=== PATIENT | female | born 1945 | race Asian ===

== ENCOUNTER 2016-12-04 15:05 | Emergency (ER) | payer MEDICARE, OTHER ==
[~2016-12-04] VITALS: Ht 149.9 cm; Wt 63.6 kg
[~2016-12-04 15:05] MED LIST: ASPI-1182 PO; LEVO100 PO; METF500T4 PO; NIFE60TA71 PO; PRAV40TA4 PO; RANO500T3 PO
[2016-12-04] MEDS ORDERED: SIMV-259 PO (15:25)
[2016-12-04] MEDS ORDERED: AMLO-512 PO (15:25)
[2016-12-04] MEDS ORDERED: AMIO200T44 PO (15:25)
[2016-12-04 15:31] LABS: GLUCOSE,POINT OF CARE 139 MG/DL (70-110)
[2016-12-04] MEDS ORDERED: ACETAMINOPHEN 325 MG TABLET PO ONE (15:45)
[2016-12-04 16:54] VITALS: BP 178/62
== END 2016-12-04 17:40 | disposition home or self-care (01) ==
LOC: EMS 15:06
DX: S20.212A Contusion of left front wall of thorax, initial encounter (principal); I11.0 Hypertensive heart disease with heart failure; I50.9 Heart failure, unspecified; E11.9 Type 2 diabetes mellitus without complications; V49.50XA Passenger injured in collision with unspecified motor vehicles in traffic accident, initial encounter; Y93.89 Activity, other specified; Y92.89 Other specified places as the place of occurrence of the external cause; Y99.8 Other external cause status
CPT/HCPCS: 71020; 82962; 93005; 99284

== ENCOUNTER 2024-03-14 10:41 | Emergency (ER) | payer OTHER ==
[~2024-03-14] VITALS: Ht 149.9 cm; Wt 54.5 kg
[~2024-03-14 10:41] MED LIST changes: +AMIO200T68 PO; +AMLO-258 PO; -ASPI-1182 PO; +ASPI-1444 PO; -LEVO100 PO; +METF-1211 PO; -METF500T4 PO; -NIFE60TA71 PO; -PRAV40TA4 PO; +RANO500T27 PO; -RANO500T3 PO; +SIMV-259 PO
[2024-03-14 11:00] VITALS: BP 128/47; PULSE 66; RESP 18; TEMP 98.5; O2SAT 100
[2024-03-14] MEDS ORDERED: FERR325T27 PO (11:02)
[2024-03-14] MEDS ORDERED: AMLO5TAB66 PO (11:02)
[2024-03-14] MEDS ORDERED: ATOR10TA69 PO (11:02)
[2024-03-14] MEDS ORDERED: ASCO500T20 PO (11:02)
[2024-03-14] MEDS ORDERED: METF-446 PO (11:02)
[2024-03-14] MEDS ORDERED: CHOL200074 PO (11:02)
== END 2024-03-14 11:25 | disposition home or self-care (01) ==
LOC: EMS 10:49
DX: S01.91XD Laceration without foreign body of unspecified part of head, subsequent encounter (principal); I11.0 Hypertensive heart disease with heart failure; I50.9 Heart failure, unspecified; E11.9 Type 2 diabetes mellitus without complications; Z48.02 Encounter for removal of sutures; Z79.899 Other long term (current) drug therapy; Z79.84 Long term (current) use of oral hypoglycemic drugs; X58.XXXD Exposure to other specified factors, subsequent encounter
CPT/HCPCS: 82962; 99282

== ENCOUNTER 2024-10-06 16:26 | Emergency (ER) | payer OTHER ==
[~2024-10-06] VITALS: Ht 134.6 cm; Wt 54.5 kg
[~2024-10-06 16:26] MED LIST changes: -AMIO200T68 PO; -AMLO-258 PO; +AMLO5TAB66 PO; +ASCO500T20 PO; -ASPI-1444 PO; +ATOR10TA69 PO; +CHOL200074 PO; +FERR325T27 PO; -METF-1211 PO; +METF-446 PO; -RANO500T27 PO; -SIMV-259 PO
[2024-10-06 16:51] VITALS: TEMP 98.6
[2024-10-06 17:57] LABS: PLATELET COUNT (AUTO) 337 K/uL (150-450); RED BLOOD CELL COUNT(AUTO) 5.56 MIL/uL (4.00-5.20); RED CELL DISTRIBUTION WIDTH 15.8 % (11.5-14.5); WHITE BLOOD COUNT (AUTO) 8.9 K/uL (4.5-11.0)
[2024-10-06 18:08] LABS: CALCIUM, TOTAL 8.4 mg/dL (8.8-10.5); CREATININE 0.68 mg/dL (0.60-1.30); GLOMERULAR FILTR. RATE CALC > 60 mL/min (>60); GLUCOSE,RANDOM 104 mg/dL (70-110); SODIUM SERUM 141 mmol/L (136-145); UREA NITROGEN, BLOOD 14 mg/dL (7-18)
[2024-10-06 18:41] LABS: APPEARANCE,URINE CLEAR (CLEAR); GLUCOSE, URINE (UA) NEGATIVE (NEGATIVE); LEUKOCYTE ESTERASE ,URINE TRACE (NEGATIVE); NITRATE,URINE NEGATIVE (NEGATIVE); OCCULT BLOOD,URINE NEGATIVE (NEGATIVE); SPECIFIC GRAVITIY, URINE 1.007 (1.003-1.030)
[2024-10-06 18:53] LABS: SQUAMOUS EPITHELIAL CELL,UR Rare /LPF (None Seen)
[2024-10-06 19:00] VITALS: BP 125/65; PULSE 79; RESP 15; O2SAT 97
[2024-10-06] MEDS ORDERED: MELA3TAB89 PO (19:30)
== END 2024-10-06 19:48 | disposition home or self-care (01) ==
LOC: EMS 16:26
DX: G47.9 Sleep disorder, unspecified (principal); E11.9 Type 2 diabetes mellitus without complications; I11.0 Hypertensive heart disease with heart failure; I50.9 Heart failure, unspecified; Z98.890 Other specified postprocedural states; Z79.899 Other long term (current) drug therapy
CPT/HCPCS: 80048; 81001; 85025; 99283